=== PATIENT | female | born 1950 | race Two or more races ===

== ENCOUNTER 2016-09-25 18:42 | Emergency (ER) | payer OTHER ==
[2016-09-25 18:51] VITALS: BP 126/62; PULSE 64; TEMP 97.8; BMI 24.1
--- NOTE | 2016-09-25 19:14 | PDOC ---
History of Present Illness - General Chief Complaint: Pain Stated Complaint: PAIN Time Seen by Provider: 09/25/16 19:04 History Source: Patient Exam Limitations: No Limitations - History of Present Illness Initial Comments: 09/25/16 19:14 CHIEF COMPLAINT: Left medial knee pain HISTORY OF PRESENT ILLNESS: Patient is a 66-year-old female, history of hypertension, high cholesterol and insulin-dependent diabetes presents with left medial knee pain. Patient reports that several days ago she [place] and developed pain. Denies any other injury. There is no erythema edema or deformity. Patient ambulating with a limp. Denies any calf pain, no chest pain or shortness of breath. REVIEW OF SYSTEMS: GENERAL: Afebrile, A&O x3 RESPIRATORY: No cough, wheezing, or hemoptysis. CARDIAC: No CP or SOB MUSCULOSKELETAL: Pain to left medial knee pain SKIN : No erythema, no edema, no bruising, no deformity. NEUROLOGICAL: Denies any numbness or tingling. PHYSICAL EXAM: GENERAL: The patient is awake, alert, and fully oriented, in no acute distress. HEAD: Normal with no signs of trauma. RESPIRATORY: Lungs clear bilaterally no rhonchi, rales, or wheezes CARDIAC: S1-S2 audible, no murmur rub or gallop EXTREMITIES: Decreased range of motion to left knee related to pain, no fluid appreciated, no bulge sign. No pain to superior or inferior patella. Negative drop test. Negative posterior leg test. No joint laxity noted, no ecchymosis, no deformity, no abrasions ,no edema. +3 popliteal pulse. Negative Homans sign. No calf pain or tenderness, no erythema or edema. MUSCULOSKELETAL: No spinal point tenderness. SKIN: Warm, Dry, normal turgor, no erythema, no edema no bruising. Past History - Past Medical History Allergies/Adverse Reactions: Allergies Allergy/AdvReac Type Severity Reaction Status Date / Time Penicillins Allergy Verified 09/25/16 18:47 Home Medications: Ambulatory Orders Glimepiride [Amaryl] 4 mg PO DAILY #0 tablet 04/16/11 Loratadine [Claritin] 10 mg PO DAILY #0 tablet 04/16/11 Atorvastatin Ca [Lipitor] 20 mg PO HS 11/18/11 Metformin HCl [Glucophage] 1,000 mg PO DAILY 11/18/11 Ibuprofen [Motrin -] 600 mg PO QID #28 tablet 09/25/16 Asthma: Yes Diabetes: Yes HTN: Yes Hypercholesterolemia: Yes - Surgical History Lung Surgery: Yes - Immunization History Immunization Up to Date: Yes - Psycho/Social/Smoking Cessation Hx Anxiety: No Suicidal Ideation: No Smoking Status: No Smoking History: Never smoked Have you smoked in the past 12 months: No Number of Cigarettes Smoked Daily: 0 Information on smoking cessation initiated: No Hx Alcohol Use: No Drug/Substance Use Hx: No Substance Use Type: None Hx Substance Use Treatment: No *Physical Exam - Vital Signs Last Vital Signs Temp Pulse Resp BP Pulse Ox 97.8 F 64 18 126/62 100 09/25/16 18:49 09/25/16 18:49 09/25/16 18:49 09/25/16 18:49 09/25/16 18:49 ED Treatment Course - RADIOLOGY Radiology Studies Ordered: Category Date Time Status KNEE 3 POS-LEFT [RAD] Stat Radiology 09/25/16 19:06 Ordered Medical Decision Making - Medical Decision Making 09/25/16 19:30 A/P: Patient with pain to left knee, medial, after walking for prolonged periods of time. Patient sent to x-ray however most likely sprain of knee will need to follow-up with orthopedics knee immobilizer placed on an emergency department. Motrin for pain 09/25/16 19:52 Wet read xray negative for acute fracture dislocation. No effusion. We'll DC patient home as previously discussed Motrin for pain immobilizer, strict follow- up with Dr. Lazaro. I discussed the physical exam findings, ancillary test results and final diagnoses with the patient. I answered all of the patient's questions. The patient was satisfied with the care received and felt comfortable with the discharge plan and treatment plan. The patient will call to arrange follow-up and will return to the Emergency Department with any new, persistent or worsening symptoms. *DC/Admit/Observation/Transfer Diagnosis at time of Disposition: Knee pain Qualifiers: Chronicity: acute Laterality: left Qualified Code(s): M25.562 - Pain in left knee - Discharge Dispostion Disposition: HOME Condition at time of disposition: Good Admit: No - Prescriptions Prescriptions: Ibuprofen [Motrin -] 600 mg PO QID #28 tablet - Referrals Referrals: Elvin Lazaro MD [Staff Physician] - - Patient Instructions Printed Discharge Instructions: DI for Knee Pain Additional Instructions: 1. Please return to the emergency department with any redness, swelling, increased pain, or any other concerns. 2. Keep knee immobilizer on. 3. Please follow up in the office of Dr. Lazaro within a week if pain persists. 4. No weightbearing 5. Ice and elevate when at rest. 6. Motrin for pain
[2016-09-25] MEDS ORDERED: IBUPROFEN 600 MG TABLET (FP) PO ONE ×2 (19:54)
== END 2016-09-25 20:09 | disposition home or self-care (01) ==
LOC: JERFT 18:42
DX: M25.562 Pain in left knee (principal); X50.3XXA Overexertion from repetitive movements, initial encounter; X50.9XXA Other and unspecified overexertion or strenuous movements or postures, initial encounter; Y93.01 Activity, walking, marching and hiking; Y92.59 Other trade areas as the place of occurrence of the external cause; Y99.8 Other external cause status; I10 Essential (primary) hypertension; E78.00 Pure hypercholesterolemia, unspecified; E11.9 Type 2 diabetes mellitus without complications; Z79.4 Long term (current) use of insulin
CPT/HCPCS: 73562-TC-LT; 99281-25

== ENCOUNTER 2016-10-22 08:56 | Inpatient (IN) | payer OTHER ==
[2016-10-22] MEDS ORDERED: ALBUTEROL SO4 2.5/IPRATROPIUM 0.5 INH SOL 3 ML VIAL.NEB. NEB ONE ×2 (09:36→09:37)
--- NOTE | 2016-10-22 09:36 | PDOC ---
History of Present Illness - General History Source: Patient Exam Limitations: No Limitations <Kandy Johansen - Last Filed: 10/22/16 12:18> - General History Source: Patient Exam Limitations: No Limitations - History of Present Illness Initial Comments: 10/22/16 10:09 The patient is a 66 year old female, with a significant past medical history of Asthma, DM, HTN, HLD who presents to the emergency department with cough and dizziness today. The patient is accompanied by her daughter who states the patient has had a mild productive cough (yellow sputum) and mild diarrhea ( nonbloody) for the past week. Patient denies fever/chills, chest pain or headache. Patient states she woke up feeling dizzy and lightheaded which is unusual for her. Patient states she feels like the room is spinning. Patient presents to the ED for further evaluation. Upon arrival, patient's vital signs significant for 119 HR and 101.2 rectal temperature. Patient denies any recent travel or sick contacts. She denies abdominal pain, nausea, vomit, diarrhea or constipation. She denies dysuria, frequency, urgency or hematuria. Allergies: Penicillins Past surgical history: Lung surgery Social history: None Family history: [facility] and Stroke PCP: None <Rena Strickland - Last Filed: 10/22/16 14:14> - General Chief Complaint: Lightheaded Stated Complaint: LIGHTHEADED Past History - Past Medical History Asthma: Yes Diabetes: Yes HTN: Yes Hypercholesterolemia: Yes - Surgical History Lung Surgery: Yes - Immunization History Immunization Up to Date: Yes - Psycho/Social/Smoking Cessation Hx Anxiety: No Suicidal Ideation: No Smoking Status: No Smoking History: Never smoked Have you smoked in the past 12 months: No Number of Cigarettes Smoked Daily: 0 Information on smoking cessation initiated: No Hx Alcohol Use: No Drug/Substance Use Hx: No Substance Use Type: None Hx Substance Use Treatment: No <Kandy Johansen - Last Filed: 10/22/16 12:18> <Rena Strickland - Last Filed: 10/22/16 14:14> - Past Medical History Allergies/Adverse Reactions: Allergies Allergy/AdvReac Type Severity Reaction Status Date / Time Penicillins Allergy Verified 10/22/16 09:02 Home Medications: Ambulatory Orders Glimepiride [Amaryl] 4 mg PO DAILY #0 tablet 04/16/11 Atorvastatin Ca [Lipitor] 20 mg PO HS 11/18/11 Metformin HCl [Glucophage] 1,000 mg PO DAILY 11/18/11 Ibuprofen [Motrin -] 600 mg PO QID #28 tablet 09/25/16 Review of Systems - Review of Systems Able to Perform ROS?: Yes Comments:: 10/22/16 10:09 GENERAL/CONSTITUTIONAL: No fever or chills. No weakness. HEAD, EYES, EARS, NOSE AND THROAT: No change in vision. No ear pain or discharge. No sore throat. GASTROINTESTINAL: No nausea, vomiting, diarrhea or constipation. GENITOURINARY: No dysuria, frequency, or change in urination. CARDIOVASCULAR: No chest pain or shortness of breath. RESPIRATORY: + cough. No wheezing, or hemoptysis. MUSCULOSKELETAL: No joint or muscle swelling or pain. No neck or back pain. SKIN: No rash NEUROLOGIC: +dizziness. No headache, vertigo, loss of consciousness, or change in strength/sensation. ENDOCRINE: No increased thirst. No abnormal weight change. HEMATOLOGIC/LYMPHATIC: No anemia, easy bleeding, or history of blood clots. ALLERGIC/IMMUNOLOGIC: No hives or skin allergy. <Rena Strickland - Last Filed: 10/22/16 14:14> *Physical Exam - Vital Signs Last Vital Signs Temp Pulse Resp BP Pulse Ox 99.6 F 119 H 18 135/68 96 10/22/16 08:58 10/22/16 08:58 10/22/16 08:58 10/22/16 08:58 10/22/16 08:58 <Kandy Johansen - Last Filed: 10/22/16 12:18> - Vital Signs Last Vital Signs Temp Pulse Resp BP Pulse Ox 101.2 F H 119 H 18 135/68 96 10/22/16 10:09 10/22/16 08:58 10/22/16 08:58 10/22/16 08:58 10/22/16 08:58 - Physical Exam Comments: 10/22/16 10:09 GENERAL: Awake, alert, and fully oriented, in no acute distress HEAD: No signs of trauma EYES: PERRLA, EOMI, sclera anicteric, conjunctiva clear ENT: Auricles normal inspection, nares patent, Moist mucosa NECK: Normal ROM, supple, no lymphadenopathy, JVD, or masses LUNGS: Breath sounds equal. +Wheezing bilaterally. +Crackles at the L base. HEART: Regular rate and rhythm, normal S1 and S2, no murmurs, rubs or gallops ABDOMEN: Soft, nontender, normoactive bowel sounds. No guarding, no rebound. No masses EXTREMITIES: Normal range of motion, no edema. No clubbing or cyanosis. No cords, erythema, or tenderness NEUROLOGICAL: Cranial nerves II through XII intact. 5/5 motor strength in upper and lower extremities. Finger to nose normal. Alternating movements normal. (-) Negative Rhomberg test. (-) Negative Riley Hallpike. Normal speech, normal gait. SKIN: Warm, Dry, normal turgor, no rashes or lesions noted. <Rena Strickland - Last Filed: 10/22/16 14:14> Heart Score/ECG Review #1 General ECG Interpretation: Sinus Rhythm, Normal Rate, Normal Intervals, No acute ischemic changes (TWI III, AVF rate 107 bpm) Compared to previous ECG there are: Changes noted 10/22/16 11:25 new TWI III, AVF, compared 02/01/14 - ECG Intrepretation Rhythm: Regular Rhythm - [place]: Normal <Kandy Johansen - Last Filed: 10/22/16 12:18> ED Treatment Course - LABORATORY CBC & Chemistry Diagram: 10/22/16 10:10 10/22/16 10:00 <Kandy Johansen - Last Filed: 10/22/16 12:18> - LABORATORY CBC & Chemistry Diagram: 10/22/16 10:10 10/22/16 10:00 - Medications Given in the ED: ED Medications Discontinued Medications Generic Name Dose Route Start Last Admin Trade Name Dannyq PRN Reason Stop Dose Admin Albuterol/Ipratropium 1 amp 10/22/16 09:36 10/22/16 09:43 Duoneb - NEB 10/22/16 09:37 1 amp ONCE ONE Administration <Rena Strickland - Last Filed: 10/22/16 14:14> Medical Decision Making - Medical Decision Making 10/22/16 09:33 66 yo h/o DM HTN HLD here with c/o cough x 1 week. productive yellow phlegm today felt dizzy. does describe vertigo like sensation beginning on awakening at 6 am. felt like she was going to fall. no loc no syncope. no cp no sob. since has resolved. no h/o prior vertigo. no n/v no f/c. no focal weakness. on exam awake alert lungs with wheezing bilat, crackles left base. heart rrr no mrg. abd soft nt nd. ext nonedema. nuero alert oriented CN intact, finger to nose normal alt hand movement normal. heel to correa norml. gait normal. neg romberg. neg riley hallpike. differential bronchitis, pna, chf, electrolyte abnormality, jose nebs cxr likley abx, fluid reassess. 10/22/16 12:18 d/W dr balderas, will admit for pneumonia, DM hypereglycemia and new TWI on ekg. trop negative. riaj give asa, and admit to tele. andrey request kimmie cardiology consult <Kandy Johansen - Last Filed: 10/22/16 12:18> - Medical Decision Making 10/22/16 10:56 Chest Xray IMPRESSION: Left lower lobe infiltrate. Recommend follow-up chest x-ray to confirm resolution. Reported By: Francisco J Douglas MD 10/22/16 1042 10/22/16 12:14 Dr. Balderas paged for admission Awaiting call back. 10/22/16 13:58 Dr. Balderas returned the page and the patients case was discussed. 10/22/16 14:13 Dr. Moreira was paged and the patients case was discussed. Patient will be admitted for Tele obs <Rena Strickland - Last Filed: 10/22/16 14:14> *DC/Admit/Observation/Transfer - Discharge Dispostion Admit: Yes <Kandy Johansen - Last Filed: 10/22/16 12:18> - Attestations Scribe Attestion: 10/22/16 10:09 Documentation prepared by Rena Strickland, acting as medical sales associate for Kandy Johansen MD, MD/DO. <Rena Strickland - Last Filed: 10/22/16 14:14> Diagnosis at time of Disposition: Diabetes Qualifiers: Diabetes mellitus type: type 2 Diabetes mellitus complication status: without complication Diabetes mellitus keno terminal operator insulin use: without keno terminal operator use Qualified Code(s): E11.9 - Type 2 diabetes mellitus without complications Pneumonia Qualifiers: Pneumonia type: due to unspecified organism Laterality: left Lung location: lower lobe of lung Qualified Code(s): J18.1 - Lobar pneumonia, unspecified organism
[2016-10-22] MEDS ORDERED: ACETAMINOPHEN 325 MG TABLET (FP) PO ONE (10:09)
[2016-10-22] MEDS ORDERED: ACETAMINOPHEN 325 MG TABLET (FP) ONE (10:15)
[2016-10-22 10:36] LABS: BASOPHIL 0.2 % (0-2.0); EOSINOPHIL 0.3 % (0-4.5); MCH 30.2 pg (25.7-33.7); MCHC 34.1 g/dl (32.0-36.0); MEAN CELL VOLUME 88.5 fl (80-96); MEAN PLT VOLUME 8.6 fl (7.5-11.1); NEUTROPHILS 83.3 % (42.8-82.8); PLATELET COUNT 200 K/MM3 (134-434); RDW 12.4 % (11.6-15.6)
[2016-10-22 10:51] LABS: INR 1.16 (0.82-1.09); PROTHROMBIN TIME (PATIENT) 12.8 SEC (9.98-11.88)
[2016-10-22 10:54] LABS: ACTIVATED PTT 26.5 SECONDS (26.9-34.4)
[2016-10-22 11:01] LABS: URINE APPEARANCE CLEAR; URINE BILIRUBIN NEGATIVE (NEGATIVE); URINE BLOOD NEGATIVE (NEGATIVE); URINE COLOR YELLOW; URINE GLUCOSE (UA) 3+ (NEGATIVE); URINE KETONE TRACE (NEGATIVE); URINE LEUK ESTERASE NEGATIVE (NEGATIVE); URINE NITRITE NEGATIVE (NEGATIVE); URINE PROTEIN NEGATIVE (NEGATIVE)
[2016-10-22 11:28] LABS: ALBUMIN 3.6 g/dl (3.4-5.0); ANION GAP 7 (8-16); BILIRUBIN,TOTAL 0.4 mg/dL (0.2-1.0); CALCIUM 9.5 mg/dL (8.5-10.1); CO2 29 mmol/L (21-32); CREATININE 0.8 mg/dL (0.55-1.02); SGOT/AST 16 U/L (15-37); SGPT/ALT 19 U/L (12-78); TOT PROT 7.1 g/dl (6.4-8.2)
[2016-10-22 11:31] LABS: ALK PHOS 68 U/L (45-117); CPK 92 IU/L (26-192); TROPONIN I < 0.02 ng/ml (0.00-0.05)
--- NOTE | 2016-10-22 11:35 | PDOC ---
History of Present Illness - General Chief Complaint: Lightheaded Stated Complaint: LIGHTHEADED Time Seen by Provider: 10/22/16 09:40 - History of Present Illness Initial Comments: 10/22/16 11:34 66 yo female with h/o DM, HTN, and asthma who presents with dizziness. Per conversation with conference interpreter ([id number]) Pt. reports episode of dizziness, sensation of room spinning this AM when going to the bathroom and sitting down. Episode was transient lasting minutes and resolved. Also endorses cough with yellow sputum production and SOB beginning this AM. + diahrea. Denies chest pain , fevers/chills, weakness, N/V, blood in stool. Denies hemoptysis, h/o PE/DVT, recent trauma or surgery within past 4 weeks. Denies home duoneb use. Currently does not have PCP and reports obtaining new PCP in [place] [address] Kev Angulo. Has Penicillin allergy. Past History - Past Medical History Allergies/Adverse Reactions: Allergies Allergy/AdvReac Type Severity Reaction Status Date / Time Penicillins Allergy Verified 10/22/16 09:02 Home Medications: Ambulatory Orders Glimepiride [Amaryl] 4 mg PO DAILY #0 tablet 04/16/11 Atorvastatin Ca [Lipitor] 20 mg PO HS 11/18/11 Metformin HCl [Glucophage] 1,000 mg PO DAILY 11/18/11 Ibuprofen [Motrin -] 600 mg PO QID #28 tablet 09/25/16 Asthma: Yes Diabetes: Yes HTN: Yes Hypercholesterolemia: Yes - Surgical History Lung Surgery: Yes - Immunization History Immunization Up to Date: Yes - Psycho/Social/Smoking Cessation Hx Anxiety: No Suicidal Ideation: No Smoking Status: No Smoking History: Never smoked Have you smoked in the past 12 months: No Number of Cigarettes Smoked Daily: 0 Information on smoking cessation initiated: No Hx Alcohol Use: No Drug/Substance Use Hx: No Substance Use Type: None Hx Substance Use Treatment: No Review of Systems - Review of Systems Comments:: 10/22/16 11:45 GENERAL/CONSTITUTIONAL: No fever or chills. No weakness. HEAD, EYES, EARS, NOSE AND THROAT: No change in vision. No ear pain or discharge. No sore throat. CARDIOVASCULAR: No chest pain or shortness of breath RESPIRATORY:+cough and wheezing. No hemoptysis. GASTROINTESTINAL:+ diarrhea. No nausea, vomiting,or constipation. GENITOURINARY: No dysuria, frequency, or change in urination. MUSCULOSKELETAL: No joint or muscle swelling or pain. No neck or back pain. SKIN: No rash NEUROLOGIC: No headache, vertigo, loss of consciousness, or change in strength/ sensation. ENDOCRINE: No increased thirst. No abnormal weight change HEMATOLOGIC/LYMPHATIC: No anemia, easy bleeding, or history of blood clots. ALLERGIC/IMMUNOLOGIC: No hives or skin allergy. *Physical Exam - Vital Signs Last Vital Signs Temp Pulse Resp BP Pulse Ox 99 F 104 H 18 130/65 96 10/22/16 11:29 10/22/16 11:29 10/22/16 11:29 10/22/16 11:29 10/22/16 11:29 - Physical Exam Comments: 10/22/16 11:47 GENERAL: Awake, alert, and fully oriented, in no acute distress HEAD: No signs of trauma, normocephalic, atraumatic EYES: PERRLA, EOMI, sclera anicteric, conjunctiva clear ENT: Auricles normal inspection, hearing grossly normal, nares patent, oropharynx clear without exudates. Moist mucosa NECK: Normal ROM, supple, no lymphadenopathy, JVD, or masses LUNGS:+ Diffuse expiratory rhonci. Rales in LLQ at lung base. No distress, speaks full sentences, clear to auscultation bilaterally HEART: Regular rate and rhythm, normal S1 and S2, no murmurs, rubs or gallops, peripheral pulses normal and equal bilaterally. ABDOMEN: Soft, nontender, normoactive bowel sounds. No guarding, no rebound. No masses EXTREMITIES: Normal inspection, Normal range of motion, no edema. No clubbing or cyanosis. NEUROLOGICAL: Cranial nerves II through XII grossly intact. Normal speech, normal gait, no focal sensorimotor deficits SKIN: Warm, Dry, normal turgor, no rashes or lesions noted. Heart Score/ECG Review - Electrocardiogram EKG: Non specific repolarization disturbance (T wave inversion in lead III) - Age Age: >/= 65 - Risk Factors Risk Factors Heart Score: Yes Hx Hypercholesterolemia, Yes Hx Hypertension, Yes Hx Diabetes Based on the list above the patient has:: 1-2 risk factors - Troponin Troponin: </= normal limit - [place]: Normal - [place] Delta Wave(s) Present: No WPW: No - ECG Impressions Tachycardia: Sinus Torsades noelle Pointes: No WPW: No ED Treatment Course - LABORATORY CBC & Chemistry Diagram: 10/22/16 10:10 10/22/16 10:00 - ADDITIONAL ORDERS Additional order review: Laboratory Results 10/22/16 10/22/16 10/22/16 10:40 10:10 10:10 INR PTT (Actin FS) Lactic Acid 1.2 Urine Color Yellow Urine Appearance Clear Urine pH 6.0 Urine Protein Negative Urine Glucose (UA) 3+ H Urine Ketones Trace H Urine Blood Negative Urine Nitrite Negative Urine Bilirubin Negative Urine Urobilinogen 2.0 H Ur Leukocyte Esterase Negative Blood Type O POSITIVE Antibody Screen Negative 10/22/16 10:10 INR 1.16 H PTT (Actin FS) 26.5 L Lactic Acid Urine Color Urine Appearance Urine pH Urine Protein Urine Glucose (UA) Urine Ketones Urine Blood Urine Nitrite Urine Bilirubin Urine Urobilinogen Ur Leukocyte Esterase Blood Type Antibody Screen 10/22/16 10:10 RBC 3.98 MCV 88.5 MCHC 34.1 RDW 12.4 MPV 8.6 Neutrophils % 83.3 H D Lymphocytes % 10.2 D Monocytes % 6.0 Eosinophils % 0.3 D Basophils % 0.2 - RADIOLOGY Radiograph Interpretation: 10/22/16 12:11 EXAM#: TYPE/EXAM: RESULT: [id number] RAD/CHEST PA LAT Chest: HISTORY: Cough. Frontal and lateral view of the chest is provided. There is a left lower lobe infiltrate. Right lung field appears clear. Cardiomediastinal silhouette is within normal limits. There is DISH of the thoracic spine. IMPRESSION: Left lower lobe infiltrate. Recommend follow-up chest x-ray to confirm resolution. Reported By: Francisco J Douglas MD [id number] - Medications Given in the ED: ED Medications Discontinued Medications Generic Name Dose Route Start Last Admin Trade Name Freq PRN Reason Stop Dose Admin Acetaminophen 650 mg 10/22/16 10:09 10/22/16 10:24 Tylenol - PO 10/22/16 10:10 650 mg ONCE ONE Administration Albuterol/Ipratropium 1 amp 10/22/16 09:36 10/22/16 09:43 Duoneb - NEB 10/22/16 09:37 1 amp ONCE ONE Administration Medical Decision Making - Medical Decision Making 10/22/16 11:55 66 yo female with h/o DM, HTN, and asthma who presents with dizziness. Also endorses cough with yellow sputum production and SOB beginning this AM. Denies PE risk factors. Denies hemoptysis, h/o PE/DVT, recent trauma or surgery within past 4 weeks. Physical exam reveals tachycardia and increased expiratory wheezing and rales at left lung base. ED Course: CBC: 14.0 WBC CMP: Glucose: 339 BNP: 223 UA: 3+ Glucose EKG: Sinus Tachycardia and T wave inversion lead III CXR: e. IMPRESSION: Left lower lobe infiltrate. Recommend follow-up chest x-ray to confirm resolution. Reported By: Francisco J Douglas MD 10/22/16 1042 Levofloxacin 750 mg Albuterol *DC/Admit/Observation/Transfer Diagnosis at time of Disposition: Diabetes Qualifiers: Diabetes mellitus type: type 2 Diabetes mellitus complication status: without complication Diabetes mellitus nursing home insulin use: without long term care social worker use Qualified Code(s): E11.9 - Type 2 diabetes mellitus without complications Pneumonia Qualifiers: Pneumonia type: due to unspecified organism Laterality: left Lung location: lower lobe of lung Qualified Code(s): J18.1 - Lobar pneumonia, unspecified organism - Discharge Dispostion Admit: Yes - Attestations Physician Attestion: 10/22/16 12:41 I, Dr. Ant Connolly, attest that this document has been prepared under my direction and personally reviewed by me in its entirety. I further attest, that it accurately reflects all work, treatment, procedures and medical decision -making performed by me.
[2016-10-22 11:38] LABS: GLUCOSE,RANDOM 339 mg/dL (74-106)
[2016-10-22] MEDS ORDERED: SODIUM CHLORIDE 0.9% 1000 ML INFUS.BAG IV ONE (11:40)
[2016-10-22] MEDS ORDERED: LEVOFLOXACIN 750 MG IVPB 150 ML IVPB ONE ×2 (12:07→12:08)
--- NOTE | 2016-10-22 14:07 | EKG ---
Test Reason : Blood Pressure : / mmHG Vent. Rate : 107 BPM Atrial Rate : 107 BPM P-R Int : 142 ms QRS Dur : 082 ms QT Int : 322 ms P-R-T Axes : 026 048 -21 degrees QTc Int : 429 ms SINUS TACHYCARDIA NONSPECIFIC T WAVE ABNORMALITY ABNORMAL ECG WHEN COMPARED WITH ECG OF 01-FEB-2014 08:19, VENT. RATE HAS INCREASED BY 39 BPM T WAVE INVERSION NOW EVIDENT IN INFERIOR LEADS Confirmed by VENECIA SCHNEIDER, JARRELL ([id number]) on 10/22/2016 2:07:42 PM Referred By: Confirmed By:JARRELL CUADRA MD
[2016-10-22 16:01] VITALS: BMI 30.1
[2016-10-22 19:07] LABS: CPK 71 IU/L (26-192); TROPONIN I < 0.02 ng/ml (0.00-0.05)
--- NOTE | 2016-10-22 19:52 | HP ---
Admitting History and Physical - Primary Care Physician PCP: Horacio Neves - Admission Chief Complaint: cough, sputum yellow, sob History of Present Illness: -66 year old female, with a significant past medical history of Asthma, DM, HTN , HLD who presents to the emergency department with cough and dizziness today. The patient is accompanied by her daughter who states the patient has had a mild productive cough (yellow sputum) and mild diarrhea (nonbloody) for the past week. no fever or chills but feels weak - Past Medical History Cardiovascular: Yes: HTN, Hyperlipdemia Endocrine: Yes: Diabetes Mellitus - Smoking History Smoking history: Never smoked Have you smoked in the past 12 months: No Aproximately how many cigarettes per day: 0 - Alcohol/Substance Use Hx Alcohol Use: No History of Substance Use: reports: None - Social History ADL: Family Assistance Occupation: retired History of Recent Travel: Yes ([place] 08/2103) Home Medications - Allergies Allergies/Adverse Reactions: Allergies Allergy/AdvReac Type Severity Reaction Status Date / Time Penicillins Allergy Verified 10/22/16 09:02 - Home Medications Home Medications: Ambulatory Orders Glimepiride [Amaryl] 4 mg PO DAILY #0 tablet 04/16/11 Atorvastatin Ca [Lipitor] 20 mg PO HS 11/18/11 Metformin HCl [Glucophage] 1,000 mg PO DAILY 11/18/11 Ibuprofen [Motrin -] 600 mg PO QID #28 tablet 09/25/16 Levofloxacin [Levaquin] 500 mg PO DAILY #5 tablet 10/25/16 Family Disease History - Family Disease History Family Disease History: Diabetes: Mother, Other: Father Physical Examination Vital Signs: Vital Signs Temperature 98.9 F 10/22/16 15:51 Pulse Rate 80 10/22/16 15:51 Respiratory Rate 18 10/22/16 15:51 Blood Pressure 106/70 10/22/16 15:51 O2 Sat by Pulse Oximetry (%) 95 10/22/16 15:51 Constitutional: Yes: No Distress HENT: Yes: Atraumatic Neck: Yes: Supple Cardiovascular: Yes: Regular Rate and Rhythm Respiratory: Yes: Rhonchi Gastrointestinal: Yes: Normal Bowel Sounds Extremities: Yes: WNL Edema: No Neurological: Yes: Alert, Oriented Problem List - Problems (1) Diabetes Assessment/Plan: bgms on meds Code(s): E11.9 - TYPE 2 DIABETES MELLITUS WITHOUT COMPLICATIONS Qualifiers: Diabetes mellitus type: type 2 Diabetes mellitus complication status: without complication Diabetes mellitus senior care insulin use: without senior care use Qualified Code(s): E11.9 - Type 2 diabetes mellitus without complications (2) Pneumonia Assessment/Plan: on iv abx. afebrile id consult bcx Code(s): J18.9 - PNEUMONIA, UNSPECIFIED ORGANISM Qualifiers: Pneumonia type: due to unspecified organism Laterality: left Lung location: lower lobe of lung Qualified Code(s): J18.1 - Lobar pneumonia, unspecified organism (3) Chest pain Code(s): R07.9 - CHEST PAIN, UNSPECIFIED Assessment/Plan Laboratory Tests 10/22/16 10/22/16 10/22/16 10:00 10:10 10:10 WBC 14.0 H D RBC 3.98 Hgb 12.0 Hct 35.3 MCV 88.5 MCH 30.2 MCHC 34.1 RDW 12.4 Plt Count 200 MPV 8.6 Neutrophils % 83.3 H D Lymphocytes % 10.2 D Monocytes % 6.0 Eosinophils % 0.3 D Basophils % 0.2 INR 1.16 H PTT (Actin FS) 26.5 L Sodium 133 L Potassium 4.2 Chloride 97 L Carbon Dioxide 29 Anion Gap 7 L BUN 17 D Creatinine 0.8 D Creat Clearance w eGFR > 60 Random Glucose 339 H* D Lactic Acid Calcium 9.5 Total Bilirubin 0.4 AST 16 D ALT 19 D Alkaline Phosphatase 68 Creatine Kinase 92 Troponin I < 0.02 B-Natriuretic Peptide 223.66 H Total Protein 7.1 Albumin 3.6 Urine Color Urine Appearance Urine pH Ur Specific [place] Urine Protein Urine Glucose (UA) Urine Ketones Urine Blood Urine Nitrite Urine Bilirubin Urine Urobilinogen Ur Leukocyte Esterase Blood Type Antibody Screen 10/22/16 10/22/16 10/22/16 10:10 10:10 10:40 WBC RBC Hgb Hct MCV MCH MCHC RDW Plt Count MPV Neutrophils % Lymphocytes % Monocytes % Eosinophils % Basophils % INR PTT (Actin FS) Sodium Potassium Chloride Carbon Dioxide Anion Gap BUN Creatinine Creat Clearance w eGFR Random Glucose Lactic Acid 1.2 Calcium Total Bilirubin AST ALT Alkaline Phosphatase Creatine Kinase Troponin I B-Natriuretic Peptide Total Protein Albumin Urine Color Yellow Urine Appearance Clear Urine pH 6.0 Ur Specific [place] 1.015 Urine Protein Negative Urine Glucose (UA) 3+ H Urine Ketones Trace H Urine Blood Negative Urine Nitrite Negative Urine Bilirubin Negative Urine Urobilinogen 2.0 H Ur Leukocyte Esterase Negative Blood Type O POSITIVE Antibody Screen Negative 10/22/16 18:19 WBC RBC Hgb Hct MCV MCH MCHC RDW Plt Count MPV Neutrophils % Lymphocytes % Monocytes % Eosinophils % Basophils % INR PTT (Actin FS) Sodium Potassium Chloride Carbon Dioxide Anion Gap BUN Creatinine Creat Clearance w eGFR Random Glucose Lactic Acid Calcium Total Bilirubin AST ALT Alkaline Phosphatase Creatine Kinase 71 Troponin I < 0.02 B-Natriuretic Peptide Total Protein Albumin Urine Color Urine Appearance Urine pH Ur Specific [place] Urine Protein Urine Glucose (UA) Urine Ketones Urine Blood Urine Nitrite Urine Bilirubin Urine Urobilinogen Ur Leukocyte Esterase Blood Type Antibody Screen
[2016-10-22] MEDS ORDERED: ATORVASTATIN CA 40 MG TABLET (FP) ONE (22:34)
[2016-10-22] MEDS: ATORVASTATIN CA 20 MG TABLET (FP) PO SCH (22:40)
[2016-10-23] MEDS ORDERED: GLIMEPIRIDE 4 MG TABLET (FP) ONE (07:09)
[2016-10-23] MEDS ORDERED: metFORMIN HCL 500 MG TABLET (FP) ONE (07:09)
[2016-10-23] MEDS: metFORMIN HCL 500 MG TABLET (FP) PO SCH (07:14)
[2016-10-23] MEDS: GLIMEPIRIDE 4 MG TABLET (FP) PO SCH (07:15)
[2016-10-23] MEDS ORDERED: LEVOFLOXACIN 500 MG IVPB 100 ML IVPB ONE (10:09)
[2016-10-23] MEDS: LEVOFLOXACIN 500 MG IVPB 100 ML IVPB SCH (10:11)
--- NOTE | 2016-10-23 11:35 | CON.CARD ---
Consult Consult Specialty:: Cardiology Referred by:: Dr. Neves Reason for Consultation:: Cardiac evaluation - History of Present Illness Chief Complaint: Dizziness and cough History of Present Illness: Patient is a 66 year old female of descent with underlying history of hypertension, hypercholesterolemia and type 2 diabetes mellitus who presents with dizziness and productive cough. She denies chest pain, shortness of breath or palpitation. She denies fever or chills. She denies paroxysmal nocturnal dyspnea or orthopnea. She denies headache. Denies any syncopal episode. Cardiology consultation was called for further evaluation. - History Source History Provided By: Patient, Family Member, Medical Record Limitations to Obtaining History: Language Barrier - Past Medical History Cardio/Vascular: Yes: HTN, Hyperlipdemia Endocrine: Yes: Diabetes Mellitus - Past Surgical History Additional Surgical History: possible lobectomy - Alcohol/Substance Use Hx Alcohol Use: No History of Substance Use: reports: None - Smoking History Smoking history: Never smoked Have you smoked in the past 12 months: No Aproximately how many cigarettes per day: 0 - Social History ADL: Family Assistance Occupation: retired History of Recent Travel: Yes ([place] 08/2103) Home Medications - Allergies Allergies/Adverse Reactions: Allergies Allergy/AdvReac Type Severity Reaction Status Date / Time Penicillins Allergy Verified 10/22/16 09:02 - Home Medications Home Medications: Ambulatory Orders Glimepiride [Amaryl] 4 mg PO DAILY #0 tablet 04/16/11 Atorvastatin Ca [Lipitor] 20 mg PO HS 11/18/11 Metformin HCl [Glucophage] 1,000 mg PO DAILY 11/18/11 Ibuprofen [Motrin -] 600 mg PO QID #28 tablet 09/25/16 Family Disease History - Family Disease History Family Disease History: Diabetes: Mother Other Family History: family history of heart disease and possible CA. History of colon CA Review of Systems - Review of Systems Constitutional: denies: Chills, Fever Cardiovascular: denies: Chest Pain, Palpitations, Shortness of Breath Respiratory: reports: Cough. denies: Hemoptysis, Orthopnea, PND Gastrointestinal: denies: Constipation, Diarrhea, Melena, Nausea, Rectal Bleeding, Vomiting Neurological: reports: Dizziness. denies: Headache, Seizure, Syncope Vital Signs: Vital Signs Temperature 97 F L 10/23/16 09:17 Pulse Rate 68 08/08/17 09:17 Respiratory Rate 20 10/23/16 09:17 Blood Pressure 123/68 10/23/16 09:17 O2 Sat by Pulse Oximetry (%) 96 10/22/16 22:00 Neck: Yes: Supple Respiratory: Yes: Other (Crackles heard left base) Gastrointestinal: Yes: Normal Bowel Sounds, Soft. No: Tenderness Cardiovascular: Yes: Regular Rate and Rhythm JVD: No Carotid Bruit: No PMI: Non-Displaced Heart Sounds: Yes: S1, S2. No: Gallop Edema: No - Other Data Labs, Other Data: INR, PTT INR 1.16 (0.82-1.09) H 10/22/16 10:10 Troponin, BNP 10/22/16 18:19 Troponin I < 0.02 Laboratory Results - last 24 hr 10/22/16 10/22/16 10/22/16 10:00 10:40 18:19 Sodium 133 L Potassium 4.2 Chloride 97 L Carbon Dioxide 29 Anion Gap 7 L BUN 17 D Creatinine 0.8 D Creat Clearance w eGFR > 60 POC Glucometer Random Glucose 339 H* D Calcium 9.5 Total Bilirubin 0.4 AST 16 D ALT 19 D Alkaline Phosphatase 68 Creatine Kinase 92 71 Troponin I < 0.02 < 0.02 B-Natriuretic Peptide 223.66 H Total Protein 7.1 Albumin 3.6 Urine Color Yellow Urine Appearance Clear Urine pH 6.0 Ur Specific [place] 1.015 Urine Protein Negative Urine Glucose (UA) 3+ H Urine Ketones Trace H Urine Blood Negative Urine Nitrite Negative Urine Bilirubin Negative Urine Urobilinogen 2.0 H Ur Leukocyte Esterase Negative Sinus rhythm with nonspecific T wave abnormality Echo: Pending Imaging - Results Chest X-ray: Report Reviewed (Left lower lobe infiltrates) EKG: Report Reviewed Problem List - Problems (1) Diabetes Code(s): E11.9 - TYPE 2 DIABETES MELLITUS WITHOUT COMPLICATIONS Qualifiers: Diabetes mellitus type: type 2 Diabetes mellitus complication status: without complication Diabetes mellitus shelter insulin use: without parts counterman use Qualified Code(s): E11.9 - Type 2 diabetes mellitus without complications (2) Hypercholesterolemia Code(s): E78.00 - PURE HYPERCHOLESTEROLEMIA, UNSPECIFIED (3) Dizziness Code(s): R42 - DIZZINESS AND GIDDINESS (4) Cough Code(s): R05 - COUGH (5) URI (upper respiratory infection) Code(s): J06.9 - ACUTE UPPER RESPIRATORY INFECTION, UNSPECIFIED Assessment/Plan 1. Clinical presentation suggests URI vs. pneumonia, possible viral etiology with complaints of vertigo and episode of fever 2. Hypertension 3. Hypercholesterolemia 4. Type 2 diabetes mellitus PLAN: 1. Serial cardiac enzyme 2. Continue diabetes treatment 3. Empiric antibiotic coverage and gavin culture 4. Transthoracic echocardiography to assess LV and valvular function 5. Consider Meclizine PRN Further plans are to follow Noel Díaz MD
--- NOTE | 2016-10-23 16:25 | PN ---
Progress Note, Physician History of Present Illness: doing well - Current Medication List Current Medications: Active Medications Atorvastatin Calcium (Lipitor -) 20 mg PO HS [facility] Last Admin: 10/22/16 22:40 Dose: 20 mg Glimepiride (Amaryl -) 4 mg PO DAILY@729 [facility] Last Admin: 10/23/16 07:15 Dose: 4 mg Guaifenesin/Codeine Phosphate (Robitussin Ac -) 5 ml PO TID PRN PRN Reason: COUGH Levofloxacin (Levaquin 500 Mg Premixed Ivpb -) 100 mls @ 100 mls/hr IVPB DAILY [facility] Last Admin: 10/23/16 10:11 Dose: 100 mls/hr Metformin HCl (Glucophage -) 1,000 mg PO DAILY@729 [facility] Last Admin: 10/23/16 07:14 Dose: 1,000 mg - Objective Vital Signs: Vital Signs Temperature 97 F L 10/23/16 09:17 Pulse Rate 68 10/23/16 09:17 Respiratory Rate 20 10/23/16 09:17 Blood Pressure 123/68 10/23/16 09:17 O2 Sat by Pulse Oximetry (%) 96 10/22/16 22:00 Constitutional: Yes: No Distress HENT: Yes: Atraumatic Neck: Yes: Supple Cardiovascular: Yes: Regular Rate and Rhythm Respiratory: Yes: CTA Bilaterally Gastrointestinal: Yes: Normal Bowel Sounds Extremities: Yes: WNL Neurological: Yes: Alert Labs: INR, PTT INR 1.16 (0.82-1.09) H 10/22/16 10:10 Problem List - Problems (1) Diabetes Assessment/Plan: bgms on meds Code(s): E11.9 - TYPE 2 DIABETES MELLITUS WITHOUT COMPLICATIONS Qualifiers: Diabetes mellitus type: type 2 Diabetes mellitus complication status: without complication Diabetes mellitus termite exterminator helper insulin use: without long-term use Qualified Code(s): E11.9 - Type 2 diabetes mellitus without complications (2) Pneumonia Assessment/Plan: on iv abx id concsult bcx Code(s): J18.9 - PNEUMONIA, UNSPECIFIED ORGANISM Qualifiers: Pneumonia type: due to unspecified organism Laterality: left Lung location: lower lobe of lung Qualified Code(s): J18.1 - Lobar pneumonia, unspecified organism (3) Chest pain Assessment/Plan: resolved Code(s): R07.9 - CHEST PAIN, UNSPECIFIED
--- NOTE | 2016-10-23 17:38 | CONSULT ---
Consult Consult Specialty:: infectious diseases Reason for Consultation:: pneumonia - History of Present Illness Chief Complaint: cough weakness History of Present Illness: 66 yo female with h/o DM, HTN, and asthma who presents with dizziness. her family in the er and discussed with the family who essentially gave the history .According to them patient continued to feel weak and then became very dizzy and that is why the patient was brought to the hospital. patient was ok after some time.Also according to the family patienthas been coughing for few days and she had sputum production which was yellow in color has history of pc allergy patient currently comfortable - History Source History Provided By: Family Member Limitations to Obtaining History: Language Barrier - Past Medical History Cardio/Vascular: Yes: HTN, Hyperlipdemia Endocrine: Yes: Diabetes Mellitus - Past Surgical History Additional Surgical History: possible lobectomy - Alcohol/Substance Use Hx Alcohol Use: No History of Substance Use: reports: None - Smoking History Smoking history: Never smoked Have you smoked in the past 12 months: No Aproximately how many cigarettes per day: 0 - Social History ADL: Family Assistance Occupation: retired History of Recent Travel: Yes ([place] 08/2103) Home Medications - Allergies Allergies/Adverse Reactions: Allergies Allergy/AdvReac Type Severity Reaction Status Date / Time Penicillins Allergy Verified 10/22/16 09:02 - Home Medications Home Medications: Ambulatory Orders Glimepiride [Amaryl] 4 mg PO DAILY #0 tablet 04/16/11 Atorvastatin Ca [Lipitor] 20 mg PO HS 11/18/11 Metformin HCl [Glucophage] 1,000 mg PO DAILY 11/18/11 Ibuprofen [Motrin -] 600 mg PO QID #28 tablet 09/25/16 Family Disease History - Family Disease History Family Disease History: Diabetes: Mother Other Family History: family history of heart disease and possible [place]. History of colon CA Review of Systems - Review of Systems Constitutional: reports: Weakness, Other Eyes: reports: No Symptoms HENT: reports: No Symptoms Neck: reports: No Symptoms Cardiovascular: reports: No Symptoms Respiratory: reports: Cough, SOB, Other (sputum production) Gastrointestinal: reports: No Symptoms Genitourinary: reports: No Symptoms Musculoskeletal: reports: Muscle Weakness Integumentary: reports: No Symptoms Neurological: reports: No Symptoms Endocrine: reports: No Symptoms Hematology/Lymphatic: reports: No Symptoms Psychiatric: reports: No Symptoms Physical Exam Vital Signs: Vital Signs Temperature 97 F L 10/23/16 09:17 Pulse Rate 68 10/23/16 09:17 Respiratory Rate 20 10/23/16 09:17 Blood Pressure 123/68 10/23/16 09:17 O2 Sat by Pulse Oximetry (%) 96 10/22/16 22:00 Constitutional: Yes: No Distress, Calm Cardiovascular: Yes: Regular Rate and Rhythm Respiratory: Yes: Regular, Rhonchi, Other (decreased air entry in the left lower lobe rt side good air entry) Gastrointestinal: Yes: Normal Bowel Sounds, Soft Musculoskeletal: Yes: WNL Extremities: Yes: WNL Neurological: Yes: Alert, Oriented Psychiatric: Yes: Alert, Oriented Imaging - Results Chest X-ray: Report Reviewed, Image Reviewed Assessment/Plan Problem List - Problems (1) Diabetes Code(s): E11.9 - TYPE 2 DIABETES MELLITUS WITHOUT COMPLICATIONS Qualifiers: Diabetes mellitus type: type 2 Diabetes mellitus complication status: without complication Diabetes mellitus technician terminal and repeater insulin use: without assisted use Qualified Code(s): E11.9 - Type 2 diabetes mellitus without complications (2) Pneumonia Code(s): J18.9 - PNEUMONIA, UNSPECIFIED ORGANISM Qualifiers: Pneumonia type: due to unspecified organism Laterality: left Lung location: lower lobe of lung Qualified Code(s): J18.1 - Lobar pneumonia, unspecified organism (3) Chest pain Code(s): R07.9 - CHEST PAIN, UNSPECIFIED plan will start patient on abx continue rest of the mgmt incentive fanny rest as per primary team await for all cx
[2016-10-23] MEDS: VANCOMYCIN 1,250 MG in DEXTROSE 5%-WATER - 250 ML IVPB SCH (19:21)
[2016-10-23] MEDS: ATORVASTATIN CA 20 MG TABLET (FP) PO SCH (21:18)
[2016-10-24] MEDS: GLIMEPIRIDE 4 MG TABLET (FP) PO SCH ×2 (09:36→10:29)
[2016-10-24] MEDS: metFORMIN HCL 500 MG TABLET (FP) PO SCH ×2 (09:37→10:29)
[2016-10-24] MEDS: LEVOFLOXACIN 500 MG IVPB 100 ML IVPB SCH ×3 (09:37→10:30)
--- NOTE | 2016-10-24 09:49 | PN ---
Progress Note, Physician Chief Complaint: Not in distress No cough this am and denies dizziness History of Present Illness: Patient was seen and examined. Awake and alert. Chart was reviewed Denies chest pain, SOB or palpitations - Current Medication List Current Medications: Active Medications Atorvastatin Calcium (Lipitor -) 20 mg PO HS [facility] Last Admin: 10/23/16 21:18 Dose: 20 mg Glimepiride (Amaryl -) 4 mg PO DAILY@0730 [facility] Last Admin: 10/24/16 09:36 Dose: Not Given Guaifenesin/Codeine Phosphate (Robitussin Ac -) 5 ml PO TID PRN PRN Reason: COUGH Levofloxacin (Levaquin 500 Mg Premixed Ivpb -) 100 mls @ 100 mls/hr IVPB DAILY [facility] Last Admin: 10/24/16 09:37 Dose: 100 mls/hr Vancomycin HCl 1,250 mg/ (Dextrose) 250 mls @ 166.667 mls/hr IVPB Q24H [facility] PRN Reason: Protocol Last Admin: 10/23/16 19:21 Dose: 166.667 mls/hr Metformin HCl (Glucophage -) 1,000 mg PO DAILY@0730 [facility] Last Admin: 10/24/16 09:37 Dose: Not Given - Objective Vital Signs: Vital Signs Temperature 98.6 F 10/24/16 08:51 Pulse Rate 79 10/24/16 08:51 Respiratory Rate 20 10/24/16 08:51 Blood Pressure 123/69 10/24/16 08:51 O2 Sat by Pulse Oximetry (%) 97 10/23/16 22:00 Neck: Yes: Supple Cardiovascular: Yes: Regular Rate and Rhythm, S1, S2 Respiratory: Yes: Diminished Gastrointestinal: Yes: Normal Bowel Sounds, Soft. No: Tenderness Edema: No Additional Findings/Remarks: - Review of Systems Constitutional: denies: Chills, Fever Cardiovascular: denies: Chest Pain, Palpitations, Shortness of Breath Respiratory: reports: Cough. denies: Hemoptysis, Orthopnea, PND Gastrointestinal: denies: Constipation, Diarrhea, Melena, Nausea, Rectal Bleeding, Vomiting Neurological: reports: Dizziness. denies: Headache, Seizure, Syncope Problem List - Problems (1) Diabetes Code(s): E11.9 - TYPE 2 DIABETES MELLITUS WITHOUT COMPLICATIONS Qualifiers: Diabetes mellitus type: type 2 Diabetes mellitus complication status: without complication Diabetes mellitus rn long term care insulin use: without rn long term care use Qualified Code(s): E11.9 - Type 2 diabetes mellitus without complications (2) Hypercholesterolemia Code(s): E78.00 - PURE HYPERCHOLESTEROLEMIA, UNSPECIFIED (3) Dizziness Code(s): R42 - DIZZINESS AND GIDDINESS (4) Cough Code(s): R05 - COUGH (5) URI (upper respiratory infection) Code(s): J06.9 - ACUTE UPPER RESPIRATORY INFECTION, UNSPECIFIED Assessment/Plan 1. Clinical presentation suggests URI vs. pneumonia, possible viral etiology with complaints of vertigo and episode of fever 2. Hypertension 3. Hypercholesterolemia 4. Type 2 diabetes mellitus PLAN: 1. Serial cardiac enzyme negative 2. Continue diabetes treatment 3. Empiric antibiotic coverage and panculture 4. Transthoracic echocardiography to assess LV and valvular function official reading pending 5. Consider Meclizine PRN 6. Continue Atorvastatin Further plans are to follow Noel Díaz MD
--- NOTE | 2016-10-24 15:23 | PN ---
Progress Note, Physician History of Present Illness: patient doing better no complaints - Current Medication List Current Medications: Active Medications Atorvastatin Calcium (Lipitor -) 20 mg PO HS [facility] Last Admin: 10/23/16 21:18 Dose: 20 mg Glimepiride (Amaryl -) 4 mg PO DAILY@30 [facility] Last Admin: 10/24/16 10:29 Dose: 4 mg Guaifenesin/Codeine Phosphate (Robitussin Ac -) 5 ml PO TID PRN PRN Reason: COUGH Levofloxacin (Levaquin 500 Mg Premixed Ivpb -) 100 mls @ 100 mls/hr IVPB DAILY [facility] Last Admin: 10/24/16 10:30 Dose: 100 mls/hr Vancomycin HCl 1,250 mg/ (Dextrose) 250 mls @ 166.667 mls/hr IVPB Q24H [facility] PRN Reason: Protocol Last Admin: 10/23/16 19:21 Dose: 166.667 mls/hr Metformin HCl (Glucophage -) 1,000 mg PO DAILY@729 [facility] Last Admin: 10/24/16 10:29 Dose: 1,000 mg - Objective Vital Signs: Vital Signs Temperature 99.0 F 10/24/16 14:53 Pulse Rate 78 10/24/16 14:53 Respiratory Rate 20 10/24/16 10:00 Blood Pressure 98/55 10/24/16 14:53 O2 Sat by Pulse Oximetry (%) 96 10/24/16 10:00 Constitutional: Yes: No Distress, Calm Cardiovascular: Yes: S1, S2 Respiratory: Yes: Poor Air Entry (left side), Rhonchi Gastrointestinal: Yes: Normal Bowel Sounds, Soft Musculoskeletal: Yes: WNL Extremities: Yes: WNL Neurological: Yes: Alert, Oriented Psychiatric: Yes: Alert, Oriented Labs: INR, PTT INR 1.16 (0.82-1.09) H 10/22/16 10:10 Assessment/Plan Problem List - Problems (1) Diabetes Code(s): E11.9 - TYPE 2 DIABETES MELLITUS WITHOUT COMPLICATIONS Qualifiers: Diabetes mellitus type: type 2 Diabetes mellitus complication status: without complication Diabetes mellitus residential insulin use: without residential use Qualified Code(s): E11.9 - Type 2 diabetes mellitus without complications (2) Pneumonia Code(s): J18.9 - PNEUMONIA, UNSPECIFIED ORGANISM Qualifiers: Pneumonia type: due to unspecified organism Laterality: left Lung location: lower lobe of lung Qualified Code(s): J18.1 - Lobar pneumonia, unspecified organism (3) Chest pain Code(s): R07.9 - CHEST PAIN, UNSPECIFIED uti patients urine also showing infection plan continue abx conitnue to monitor incentive fanny rest as per primary
[2016-10-24] MEDS: VANCOMYCIN 1,250 MG in DEXTROSE 5%-WATER - 250 ML IVPB SCH (18:27)
--- NOTE | 2016-10-24 19:06 | PN ---
Progress Note, Physician History of Present Illness: doing well - Current Medication List Current Medications: Active Medications Atorvastatin Calcium (Lipitor -) 20 mg PO HS [facility] Last Admin: 10/23/16 21:18 Dose: 20 mg Glimepiride (Amaryl -) 4 mg PO DAILY@30 [facility] Last Admin: 10/24/16 10:29 Dose: 4 mg Guaifenesin/Codeine Phosphate (Robitussin Ac -) 5 ml PO TID PRN PRN Reason: COUGH Levofloxacin (Levaquin 500 Mg Premixed Ivpb -) 100 mls @ 100 mls/hr IVPB DAILY [facility] Last Admin: 10/24/16 10:30 Dose: 100 mls/hr Vancomycin HCl 1,250 mg/ (Dextrose) 250 mls @ 166.667 mls/hr IVPB Q24H [facility] PRN Reason: Protocol Last Admin: 10/24/16 18:27 Dose: 166.667 mls/hr Metformin HCl (Glucophage -) 1,000 mg PO DAILY@729 [facility] Last Admin: 10/24/16 10:29 Dose: 1,000 mg - Objective Vital Signs: Vital Signs Temperature 99.0 F 10/24/16 14:53 Pulse Rate 78 10/24/16 14:53 Respiratory Rate 20 10/24/16 10:00 Blood Pressure 98/55 10/24/16 14:53 O2 Sat by Pulse Oximetry (%) 96 10/24/16 10:00 Constitutional: Yes: No Distress HENT: Yes: Atraumatic Neck: Yes: Supple Cardiovascular: Yes: Regular Rate and Rhythm Respiratory: Yes: Rhonchi Gastrointestinal: Yes: Normal Bowel Sounds Extremities: Yes: WNL Edema: No Peripheral Pulses WNL: Yes Neurological: Yes: Alert Labs: INR, PTT INR 1.16 (0.82-1.09) H 10/22/16 10:10 Problem List - Problems (1) Diabetes Assessment/Plan: bgms on meds Code(s): E11.9 - TYPE 2 DIABETES MELLITUS WITHOUT COMPLICATIONS Qualifiers: Diabetes mellitus type: type 2 Diabetes mellitus complication status: without complication Diabetes mellitus grapple crew leader insulin use: without skilled nursing use Qualified Code(s): E11.9 - Type 2 diabetes mellitus without complications (2) Pneumonia Assessment/Plan: on iv abx id concsult bcx afebrile Code(s): J18.9 - PNEUMONIA, UNSPECIFIED ORGANISM Qualifiers: Pneumonia type: due to unspecified organism Laterality: left Lung location: lower lobe of lung Qualified Code(s): J18.1 - Lobar pneumonia, unspecified organism (3) Chest pain Code(s): R07.9 - CHEST PAIN, UNSPECIFIED (4) UTI (urinary tract infection) Assessment/Plan: on iv abx cxs noted Code(s): N39.0 - URINARY TRACT INFECTION, SITE NOT SPECIFIED
[2016-10-24] MEDS: ATORVASTATIN CA 20 MG TABLET (FP) PO SCH (21:12)
[2016-10-24] MEDS: guaiFENesin/CODEINE 5 ML UNIT-DOSE CUPS PO PRN (21:12)
[2016-10-25] MEDS: GLIMEPIRIDE 4 MG TABLET (FP) PO SCH (08:14)
[2016-10-25] MEDS: metFORMIN HCL 500 MG TABLET (FP) PO SCH (08:14)
--- NOTE | 2016-10-25 09:00 | PN ---
Progress Note, Physician Chief Complaint: Not in distress No cough this am and denies dizziness and appears comfortable History of Present Illness: Patient was seen and examined. Awake and alert. Chart was reviewed Denies chest pain, SOB or palpitations - Current Medication List Current Medications: Active Medications Atorvastatin Calcium (Lipitor -) 20 mg PO HS [facility] Last Admin: 10/24/16 21:12 Dose: 20 mg Glimepiride (Amaryl -) 4 mg PO DAILY@0730 [facility] Last Admin: 10/25/16 08:14 Dose: 4 mg Guaifenesin/Codeine Phosphate (Robitussin Ac -) 5 ml PO TID PRN PRN Reason: COUGH Last Admin: 10/24/16 21:12 Dose: 5 ml Levofloxacin (Levaquin 500 Mg Premixed Ivpb -) 100 mls @ 100 mls/hr IVPB DAILY [facility] Last Admin: 10/24/16 10:30 Dose: 100 mls/hr Vancomycin HCl 1,250 mg/ (Dextrose) 250 mls @ 166.667 mls/hr IVPB Q24H [facility] PRN Reason: Protocol Last Admin: 10/24/16 18:27 Dose: 166.667 mls/hr Metformin HCl (Glucophage -) 1,000 mg PO DAILY@0730 [facility] Last Admin: 10/25/16 08:14 Dose: 1,000 mg - Objective Vital Signs: Vital Signs Temperature 98.4 F 10/25/16 08:09 Pulse Rate 89 10/25/16 08:09 Respiratory Rate 20 10/25/16 08:09 Blood Pressure 122/74 10/25/16 08:09 O2 Sat by Pulse Oximetry (%) 96 10/24/16 20:21 Neck: Yes: Supple Cardiovascular: Yes: Regular Rate and Rhythm, S1, S2. No: Murmur Respiratory: Yes: CTA Bilaterally Gastrointestinal: Yes: Normal Bowel Sounds, Soft. No: Tenderness Edema: No Additional Findings/Remarks: - Review of Systems Constitutional: denies: Chills, Fever Cardiovascular: denies: Chest Pain, Palpitations, Shortness of Breath Respiratory: reports: Cough. denies: Hemoptysis, Orthopnea, PND Gastrointestinal: denies: Constipation, Diarrhea, Melena, Nausea, Rectal Bleeding, Vomiting Neurological: reports: Dizziness. 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 Clinical presentation suggests URI vs. pneumonia, possible viral etiology with complaints of vertigo and episode of fever 2. Hypertension 3. Hypercholesterolemia 4. Type 2 diabetes mellitus PLAN: 1. Continue diabetes treatment 2. Empiric antibiotic coverage and panculture 3. Transthoracic echocardiography to be reviewed 4. Consider Meclizine PRN 5. Continue Atorvastatin Further plans are to follow Noel Díaz MD
[2016-10-25] MEDS: LEVOFLOXACIN 500 MG IVPB 100 ML IVPB SCH (09:20)
--- NOTE | 2016-10-25 13:11 | PN ---
Progress Note, Physician History of Present Illness: patient doing better no complaints feels much better - Current Medication List Current Medications: Active Medications Atorvastatin Calcium (Lipitor -) 20 mg PO HS [facility] Last Admin: 10/24/16 21:12 Dose: 20 mg Glimepiride (Amaryl -) 4 mg PO DAILY@0730 [facility] Last Admin: 10/25/16 08:14 Dose: 4 mg Guaifenesin/Codeine Phosphate (Robitussin Ac -) 5 ml PO TID PRN PRN Reason: COUGH Last Admin: 10/24/16 21:12 Dose: 5 ml Levofloxacin (Levaquin 500 Mg Premixed Ivpb -) 100 mls @ 100 mls/hr IVPB DAILY [facility] Last Admin: 10/25/16 09:20 Dose: 100 mls/hr Vancomycin HCl 1,250 mg/ (Dextrose) 250 mls @ 166.667 mls/hr IVPB Q24H [facility] PRN Reason: Protocol Last Admin: 10/24/16 18:27 Dose: 166.667 mls/hr Metformin HCl (Glucophage -) 1,000 mg PO DAILY@729 [facility] Last Admin: 10/25/16 08:14 Dose: 1,000 mg - Objective Vital Signs: Vital Signs Temperature 98.4 F 10/25/16 08:09 Pulse Rate 89 10/25/16 08:09 Respiratory Rate 20 10/25/16 08:09 Blood Pressure 122/74 10/25/16 08:09 O2 Sat by Pulse Oximetry (%) 95 10/25/16 09:00 Constitutional: Yes: No Distress, Calm Cardiovascular: Yes: Regular Rate and Rhythm Respiratory: Yes: Regular, Rhonchi Gastrointestinal: Yes: Normal Bowel Sounds, Soft Musculoskeletal: Yes: WNL Extremities: Yes: WNL Neurological: Yes: Alert, Oriented Psychiatric: Yes: Alert, Oriented Labs: INR, PTT INR 1.16 (0.82-1.09) H 10/22/16 10:10 Assessment/Plan Problem List - Problems (1) Diabetes Code(s): E11.9 - TYPE 2 DIABETES MELLITUS WITHOUT COMPLICATIONS Qualifiers: Diabetes mellitus type: type 2 Diabetes mellitus complication status: without complication Diabetes mellitus usp insulin use: without intermodal truck driver use Qualified Code(s): E11.9 - Type 2 diabetes mellitus without complications (2) Pneumonia Code(s): J18.9 - PNEUMONIA, UNSPECIFIED ORGANISM Qualifiers: Pneumonia type: due to unspecified organism Laterality: left Lung location: lower lobe of lung Qualified Code(s): J18.1 - Lobar pneumonia, unspecified organism (3) Chest pain Code(s): R07.9 - CHEST PAIN, UNSPECIFIED uti patients urine also showing infection plan continue abx conitnue to monitor incentive fanny rest as per primary will switch to oral tomorrow
--- NOTE | 2016-10-25 16:30 | PN ---
Progress Note, Physician History of Present Illness: doing well - Current Medication List Current Medications: Active Medications Atorvastatin Calcium (Lipitor -) 20 mg PO HS [facility] Last Admin: 10/24/16 21:12 Dose: 20 mg Glimepiride (Amaryl -) 4 mg PO DAILY@30 [facility] Last Admin: 10/25/16 08:14 Dose: 4 mg Guaifenesin/Codeine Phosphate (Robitussin Ac -) 5 ml PO TID PRN PRN Reason: COUGH Last Admin: 10/24/16 21:12 Dose: 5 ml Levofloxacin (Levaquin 500 Mg Premixed Ivpb -) 100 mls @ 100 mls/hr IVPB DAILY [facility] Last Admin: 10/25/16 09:20 Dose: 100 mls/hr Vancomycin HCl 1,250 mg/ (Dextrose) 250 mls @ 166.667 mls/hr IVPB Q24H [facility] PRN Reason: Protocol Last Admin: 10/24/16 18:27 Dose: 166.667 mls/hr Metformin HCl (Glucophage -) 1,000 mg PO DAILY@729 [facility] Last Admin: 10/25/16 08:14 Dose: 1,000 mg - Objective Vital Signs: Vital Signs Temperature 98.8 F 10/25/16 15:09 Pulse Rate 76 10/25/16 15:09 Respiratory Rate 20 10/25/16 08:09 Blood Pressure 111/59 10/25/16 15:09 O2 Sat by Pulse Oximetry (%) 95 10/25/16 09:00 Constitutional: Yes: No Distress HENT: Yes: Atraumatic Neck: Yes: Supple Cardiovascular: Yes: Regular Rate and Rhythm Respiratory: Yes: CTA Bilaterally Gastrointestinal: Yes: Normal Bowel Sounds Extremities: Yes: WNL Neurological: Yes: Alert, Oriented Labs: INR, PTT INR 1.16 (0.82-1.09) H 10/22/16 10:10 Problem List - Problems (1) Diabetes Assessment/Plan: bgms on meds Code(s): E11.9 - TYPE 2 DIABETES MELLITUS WITHOUT COMPLICATIONS Qualifiers: Diabetes mellitus type: type 2 Diabetes mellitus complication status: without complication Diabetes mellitus manager terminal insulin use: without senior living use Qualified Code(s): E11.9 - Type 2 diabetes mellitus without complications (2) Pneumonia Assessment/Plan: on iv abx..will ashlie to po and dc afebrile Code(s): J18.9 - PNEUMONIA, UNSPECIFIED ORGANISM Qualifiers: Pneumonia type: due to unspecified organism Laterality: left Lung location: lower lobe of lung Qualified Code(s): J18.1 - Lobar pneumonia, unspecified organism (3) Chest pain Code(s): R07.9 - CHEST PAIN, UNSPECIFIED
[2016-10-25] MEDS: VANCOMYCIN 1,250 MG in DEXTROSE 5%-WATER - 250 ML IVPB SCH (18:21)
[2016-10-25 19:45] LABS: BASOPHIL 0.5 % (0-2.0); EOSINOPHIL 5.2 % (0-4.5); MCH 30.6 pg (25.7-33.7); MCHC 34.7 g/dl (32.0-36.0); MEAN CELL VOLUME 88.2 fl (80-96); MEAN PLT VOLUME 8.4 fl (7.5-11.1); NEUTROPHILS 61.3 % (42.8-82.8); PLATELET COUNT 239 K/MM3 (134-434); RDW 12.2 % (11.6-15.6); WHITE BLOOD COUNT 8.3 K/mm3 (4.0-10.0)
[2016-10-25 20:08] LABS: ALBUMIN 3.1 g/dl (3.4-5.0); ANION GAP 7 (8-16); CO2 28 mmol/L (21-32); CREATININE 0.7 mg/dL (0.55-1.02); GLUCOSE,RANDOM 179 mg/dL (74-106); SGOT/AST 18 U/L (15-37); SGPT/ALT 20 U/L (12-78)
[2016-10-25 20:09] LABS: ALK PHOS 60 U/L (45-117); BILIRUBIN,TOTAL 0.4 mg/dL (0.2-1.0); TOT PROT 6.5 g/dl (6.4-8.2)
[2016-10-25] MEDS: guaiFENesin/CODEINE 5 ML UNIT-DOSE CUPS PO PRN (21:28)
[2016-10-25] MEDS: ATORVASTATIN CA 20 MG TABLET (FP) PO SCH (21:28)
[2016-10-26] MEDS: metFORMIN HCL 500 MG TABLET (FP) PO SCH (06:43)
[2016-10-26] MEDS: GLIMEPIRIDE 4 MG TABLET (FP) PO SCH (06:44)
[2016-10-26] MEDS: LEVOFLOXACIN 500 MG IVPB 100 ML IVPB SCH (09:09)
[2016-10-26 11:19] VITALS: BP 94/50; PULSE 68; TEMP 97.5
--- NOTE | 2016-10-26 21:44 | DS ---
Physical Examination Vital Signs: Vital Signs Temperature 97.5 F L 10/26/16 09:00 Pulse Rate 68 10/26/16 09:00 Respiratory Rate 18 10/26/16 09:00 Blood Pressure 94/50 10/26/16 09:00 O2 Sat by Pulse Oximetry (%) 94 L 10/26/16 09:00 Labs: CBC, BMP 10/25/16 18:30 10/25/16 18:30 Discharge Summary Reason For Visit: DM, PNA ABNORMAL ELECTROCARDIOGRAPHY - Instructions Disposition: HOME - Home Medications Comprehensive Discharge Medication List: Ambulatory Orders Glimepiride [Amaryl] 4 mg PO DAILY #0 tablet 04/16/11 Atorvastatin Ca [Lipitor] 20 mg PO HS 11/18/11 Metformin HCl [Glucophage] 1,000 mg PO DAILY 11/18/11 Ibuprofen [Motrin -] 600 mg PO QID #28 tablet 09/25/16 Levofloxacin [Levaquin] 500 mg PO DAILY #5 tablet 10/25/16 [place]
== END 2016-10-26 13:05 | disposition home or self-care (01) | DRG 194 ==
LOC: JER 08:56 → JERBED 12:21 → J6S 10-23 18:43
PROVIDERS: ADMIT Internal Medicine; ATTEND Internal Medicine
DX: J18.9 Pneumonia, unspecified organism (principal); N39.0 Urinary tract infection, site not specified; B96.20 Unspecified Escherichia coli [E. coli] as the cause of diseases classified elsewhere; J45.909 Unspecified asthma, uncomplicated; I10 Essential (primary) hypertension; E78.5 Hyperlipidemia, unspecified; E11.9 Type 2 diabetes mellitus without complications; R07.89 Other chest pain; R94.31 Abnormal electrocardiogram [ECG] [EKG]; J06.9 Acute upper respiratory infection, unspecified; R42 Dizziness and giddiness; Z88.0 Allergy status to penicillin; Z79.84 Long term (current) use of oral hypoglycemic drugs
CPT/HCPCS: 36415; 71020-TC; 80053; 81003; 83605; 83880; 84484; 85025; 85610; 85730; 86850; 86900; 86901; 87040; 87086; 87186; 93005; 93010; 93306-TC; 99285-25

== ENCOUNTER 2018-08-15 12:44 | Emergency (ER) | payer OTHER | END 2018-08-15 15:10 | disposition home or self-care (01) | LOC: JER 12:44 ==